=== PATIENT | female | born 1990 | race African-American/Black ===

== ENCOUNTER 2018-08-16 07:34 | Outpatient (CLI) | payer OTHER ==
--- NOTE | 2018-08-16 09:38 | MRI Report ---
Reason: PAIN IN RIGHT KNEE Procedure Date: 08/16/2018 Accession Number: [id number] / [id number] Procedure: MRI - Knee RT W/O CPT Code: FULL RESULT: EXAM: RIGHT KNEE MRI WITHOUT CONTRAST EXAM DATE: 08/16/2018 08:01 AM. CLINICAL HISTORY: PAIN IN RIGHT KNEE. "Recurring locking sensation" COMPARISON: None. TECHNIQUE: Multiplanar, multisequence T1-weighted and fluid-sensitive sequences of the knee without contrast. Other: None. FINDINGS: Bones: No fractures or subluxations. No marrow edema. No bone lesions. Articular Cartilage: Mild chondromalacia lateral patellar facet. Medial Meniscus: The medial meniscus is intact. Lateral Meniscus: The lateral meniscus is intact. Cruciate Ligaments: The anterior and posterior cruciate ligaments are intact. Collateral Ligaments: The medial collateral and lateral collateral ligamentous structures are intact. Tendons: The quadriceps, patellar, semimembranosus, and popliteus tendons are unremarkable. Musculature: No edema or fatty atrophy. Other: Small quantity of fluid medial and lateral patellar recesses.. No popliteal cyst. No loose bodies. The medial and lateral retinacula are intact. The subcutaneous tissues and fat pads are unremarkable. IMPRESSION: Negative for meniscus tear or internal derangement. RADIA MUSCULOSKELETAL RADIOLOGY SECTION
== END 2018-08-16 07:35 | disposition home or self-care (01) ==
LOC: DI 07:34
PROVIDERS: ATTEND Student in an Organized Health Care Education/Training Program
DX: M25.561 Pain in right knee (principal)

== ENCOUNTER 2019-08-16 16:58 | Emergency (ER) | payer OTHER ==
[2019-08-16 18:32] LABS: BASOPHILS % (AUTO) 0.5 %; EOSINOPHILS # (AUTO) 0.1 10^3/uL (0.0-0.7); EOSINOPHILS % (AUTO) 1.7 %; LYMPHOCYTES # (AUTO) 1.5 10^3/uL (1.5-3.5); LYMPHOCYTES % (AUTO) 18.9 %; MEAN CORPUSCULAR HEMOGLOBIN 23.1 pg (27.0-31.0); MEAN CORPUSCULAR HGB CONC 31.2 g/dL (32.0-36.0); MEAN CORPUSCULAR VOLUME 74.3 fL (81.0-99.0); MEAN PLATELET VOLUME 10.4 fL (7.9-10.8); MONOCYTES # (AUTO) 0.7 10^3/uL (0.0-1.0); MONOCYTES % (AUTO) 8.5 %; NEUTROPHILS # (AUTO) 5.4 10^3/uL (1.5-6.6); PLT - PLATELET COUNT 298 10^3/uL (130-450); RED BLOOD COUNT 4.32 10^6/uL (4.20-5.40); RED CELL DISTRIBUTION WIDTH 15.5 % (12.0-15.0); WHITE BLOOD COUNT 7.7 x10^3/uL (4.8-10.8)
[2019-08-16 18:33] VITALS: BP 114/76
--- NOTE | 2019-08-16 18:41 | ED Physician Documentation ---
PD HPI CHEST PAIN - Stated complaint Stated Complaint: RAPID HR/DIFFICULTY BREATHING - Chief complaint Chief Complaint: Cardiac - History obtained from History obtained from: Patient - History of Present Illness Timing - onset: Today (This is a G3, P1 at 22 weeks gestation who since 2:00 has had intermittent episodes of feeling like her heart is racing and shortness of breath when she lays flat. There is no associated chest pain, pedal edema or calf pain. With it. No recent travel.) Review of Systems Constitutional: denies: Fever, Chills, Fatigue Cardiac: denies: Chest pain / pressure, Pedal edema, Calf pain Respiratory: denies: Cough, Hemoptysis, Wheezing PD PAST MEDICAL HISTORY - Present Medications Home Medications: Ambulatory Orders Medication Instructions Recorded Confirmed Metoclopramide [Reglan] 10 mg PO Q6H 08/16/19 08/16/19 Pnv No.95/Ferrous Fum/Folic AC 1 each PO 08/16/19 08/16/19 [ Caplet] Propranolol [Inderal] 10 mg PO 08/16/19 Somatropin [Humatrope] 12 mg IJ 08/16/19 - Allergies Allergies/Adverse Reactions: Allergies Allergy/AdvReac Type Severity Reaction Status Date / Time lidocaine Allergy Edema Verified 08/16/19 17:05 - Social History Does the pt smoke?: No Smoking Status: Never smoker PD ED PE NORMAL - Vitals Vital signs reviewed: Yes - General General: Alert and oriented X 3, No acute distress - Cardiac Cardiac: RRR, No murmur - Respiratory Respiratory: No respiratory distress, Clear bilaterally - Abdomen Abdomen: Non tender, Other (Bedside ultrasound shows single live intrauterine with a heart rate of 130) - Extremities Extremities: No edema, No calf tenderness / cord - Neuro Neuro: Alert and oriented X 3, Normal speech Results - Vitals Vitals: Vital Signs - 24 hr 08/16/19 08/16/19 17:02 18:32 Temperature 37 C Heart Rate 102 H 86 Respiratory 22 25 H Rate Blood Pressure 128/70 114/76 O2 Saturation 99 98 Oxygen O2 Source Room air - EKG (time done) 1713 Rate: Rate (enter#) (102) Rhythm: Sinus tachycardia Rindge: Normal Intervals: Normal HI QRS: Normal Ischemia: Normal ST segments Computer interpretation: Agree with computer - Labs Labs: Laboratory Tests 08/16/19 08/16/19 08/16/19 18:14 18:14 18:14 WBC 7.7 RBC 4.32 Hgb 10.0 L Hct 32.1 L MCV 74.3 L MCH 23.1 L MCHC 31.2 L RDW 15.5 H Plt Count 298 MPV 10.4 Neut # (Auto) 5.4 Lymph # (Auto) 1.5 Kern # (Auto) 0.7 Eos # (Auto) 0.1 Baso # (Auto) 0.0 Absolute Nucleated RBC 0.00 Nucleated RBC % 0.0 Sodium 140 Potassium 3.8 Chloride 107 Carbon Dioxide 23 Anion Gap 10.0 BUN 11 Creatinine 0.8 Estimated GFR (MDRD) 103 Glucose 120 H Calcium 9.1 Total Bilirubin 0.4 AST 15 ALT 10 Alkaline Phosphatase 41 L Troponin I High Sens < 2.3 L Total Protein 7.5 Albumin 3.4 Globulin 4.1 Albumin/Globulin Ratio 0.8 L Lipase 42 PD MEDICAL DECISION MAKING - ED course ED course: 28-year-old woman, G3, P1 at 22 weeks gestation with some feeling of rapid heart rate and shortness of breath today. No clinical evidence of DVT/PE. Modestly anemic. Departure - Departure Disposition: Home, Self Care Clinical Impression: Palpitations Condition: Good Record reviewed to determine appropriate education?: Yes Instructions: ED Palpitations Comments: You are mildly anemic which is kind of normal in . Return for new or worsening symptoms. Follow-up with your OB in 2 to 3 days for recheck.
[2019-08-16 18:48] LABS: ALBUMIN 3.4 g/dL (3.2-5.5); ALBUMIN/GLOBULIN RATIO 0.8 (1.0-2.2); BILIRUBIN,TOTAL 0.4 mg/dL (0.2-1.0); CALCIUM 9.1 mg/dL (8.5-10.3); CREATININE 0.8 mg/dL (0.4-1.0); TOTAL PROTEIN 7.5 g/dL (6.7-8.2)
== END 2019-08-16 19:07 | disposition home or self-care (01) ==
LOC: ED 16:58
DX: O99.412 Diseases of the circulatory system complicating pregnancy, second trimester (principal); R00.0 Tachycardia, unspecified; O99.012 Anemia complicating pregnancy, second trimester; Z3A.22 22 weeks gestation of pregnancy
CPT/HCPCS: 36415; 80053; 83690; 84484; 85025; 93005; 99283

== ENCOUNTER 2020-07-27 08:04 | Outpatient (CLI) | payer OTHER ==
--- NOTE | 2020-07-27 09:26 | MRI Report ---
PROCEDURE: Lumbar Spine W/O INDICATIONS: RT HIP DROP TECHNIQUE: Noncontrast sagittal T1 spin echo and T2 fast echo, sagittal STIR, axial T1 and T2 fast spin echo thr ough the lumbar spine. In cases with scoliosis, additional coronal T2 fast spin echo may be performe d. COMPARISON: None. FINDINGS: Image quality: Excellent. Alignment and Curvature: There is normal bony alignment. Bone Marrow: Marrow is of normal overall signal. No acute vertebral body compression fractures. Spinal Cord: Normal position and appearance of the conus. Regional Soft Tissues: Prevertebral and paraspinous soft tissues are within normal limits T12-L1: Normal in appearance. L1-L2: Normal in appearance. L2-L3: Normal in appearance. L3-L4: Normal in appearance. L4-L5: Normal in appearance. L5-S1: Normal in appearance. IMPRESSION: Normal MRI of the lumbar spine with no findings of focal nerve root impingement or signi ficant degenerative change. Reviewed by: Florin Marin MD on 07/27/2020 9:25 AM PDT Approved by: Florin Marin MD on 07/27/2020 9:25 AM PDT Station ID: [id number]
== END 2020-07-27 08:05 | disposition home or self-care (01) ==
LOC: DI 08:04
DX: M25.351 Other instability, right hip (principal); M25.551 Pain in right hip
CPT/HCPCS: 72148

== ENCOUNTER 2022-03-25 17:01 | Emergency (ER) | payer OTHER ==
[2022-03-25 17:22] VITALS: BP 120/65
--- NOTE | 2022-03-25 18:06 | ED Physician Documentation ---
PD HPI LOWER EXT INJURY - Stated complaint Stated Complaint: RIGHT FOOT INJURY - Chief complaint Chief Complaint: Trauma Ext - History obtained from History obtained from: Patient (She slipped getting out of her truck 2 days ago and has pain at the lateral part of the left foot from an injury. No other injuries. Pain is moderate but controlled by ibuprofen.) Review of Systems Constitutional: reports: Reviewed and negative Eyes: reports: Reviewed and negative Ears: reports: Reviewed and negative Cardiac: reports: Reviewed and negative PD PAST MEDICAL HISTORY - Present Medications Home Medications: Ambulatory Orders Medication Instructions Recorded Confirmed Metoclopramide [Reglan] 10 mg PO Q6H 08/16/19 08/16/19 Pnv No.95/Ferrous Fum/Folic AC 1 each PO 08/16/19 08/16/19 [ Caplet] Propranolol [Inderal] 10 mg PO 08/16/19 Somatropin [Humatrope] 12 mg IJ 08/16/19 - Allergies Allergies/Adverse Reactions: Allergies Allergy/AdvReac Type Severity Reaction Status Date / Time lidocaine Allergy Edema Verified 03/25/22 17:22 - Social History Does the pt smoke?: No Smoking Status: Never smoker PD ED PE NORMAL - Vitals Vital signs reviewed: Yes - General General: Alert and oriented X 3, No acute distress - Extremities Extremities: Other (Tender over the fifth metatarsal diffusely. No obvious bruising or swelling.) - Neuro Neuro: Alert and oriented X 3, No motor deficit, No sensory deficit, Normal speech Results - Vitals Vitals: Vital Signs - 24 hr 03/25/22 17:18 Temperature 36.5 C Heart Rate 85 Respiratory 12 Rate Blood Pressure 120/65 O2 Saturation 99 Oxygen O2 Source Room air - Rads (name of study) Three-view x-ray of the left foot is unremarkable without evidence of fracture. Radiology: EMP read contemporaneously PD MEDICAL DECISION MAKING - ED course ED course: She is placed in a walking boot and up on crutches for comfort. Declined prescription pain medication. Departure - Departure Disposition: 01 Home, Self Care Clinical Impression: Sprain of left foot Qualifiers: Encounter type: initial encounter Qualified Code(s): S93.602A - Unspecified sprain of left foot, initial encounter Condition: Good Record reviewed to determine appropriate education?: Yes Instructions: ED Sprain Foot Comments: You may walk and bear weight as tolerated. Tylenol and/or ibuprofen as needed for pain. Return for new or worsening symptoms. Keep it elevated and ice it. If not improved in a week, follow-up with your doctor for recheck. Forms: Activity restrictions
--- NOTE | 2022-03-25 18:18 | XRAY Report ---
PROCEDURE: Foot 3 View RT INDICATIONS: Right foot injury TECHNIQUE: 4 views of the foot were acquired. COMPARISON: None FINDINGS: Bones: No fractures or dislocations. No suspicious bony lesions. Soft tissues: No tibiotalar joint effusion. Achilles tendon appears normal. IMPRESSION: No evidence acute bony abnormality of the left foot. If clinical suspicion and/or symptoms persist, further assessment with repeat plain films or advanced imaging (e.g., CT, MRI, or bone scan) may be helpful for further assessment. Reviewed by: Jeffy Bland MD on 03/25/2022 6:17 PM PDT Approved by: Jeffy Bland MD on 03/25/2022 6:17 PM PDT Station ID: [id number]
== END 2022-03-25 18:38 | disposition home or self-care (01) ==
LOC: ED 17:01
DX: S93.602A Unspecified sprain of left foot, initial encounter (principal); W17.89XA Other fall from one level to another, initial encounter
CPT/HCPCS: 99282; 99283

== ENCOUNTER 2023-05-15 07:22 | Outpatient (CLI) | payer OTHER ==
--- NOTE | 2023-05-15 09:53 | MRI Report ---
PROCEDURE: WRIST WO - LT INDICATIONS: LEFT WRIST PAIN TECHNIQUE: Noncontrast coronal proton density fast spin echo and T2 fast spin echo with fat saturation; coronal 3-D gradient echo, axial T1 spin echo and T2 fast spin echo with fat saturation, sagittal T1 spin ech o through the wrist. COMPARISON: 06/10/2022. FINDINGS: Image quality: Excellent. Bones and cartilage: The carpal bones are normally aligned. No bone marrow contusions or fractures. No evidence for avascular necrosis. Overlying cartilage surfaces appear normal. Carpal ligaments: The scapholunate ligament is mildly thickened with subtle intrasubstance T2 hyperi ntense signal. The and lunotriquetral ligament is intact. In the absence of intra-articular contrast, the extrinsic carpal ligaments are not well identified. On sagittal images, the pisohamate ligament appears intact. Triangular fibrocartilage complex: Signal abnormality involving regular fibrocartilage near its ulnar insertion is again noted. The adjacent meniscal homolog appears normal in the absence of intra-artic ular contrast. The extensor carpi ulnaris tendon is mildly thickened at the level of ulnar styloid w ith subtle intrasubstance T2 hyperintense signal. Tendons and soft tissues: The carpal tunnel structures appear normal, including the median nerve. T he ulnar nerve appears normal within Guyon's canal. All six extensor tendon compartments demonstrate normal morphology, without pathologic tendon sheath fluid. No soft tissue ganglion cysts. IMPRESSION: 1. Suggestion of low-grade sprain/intrasubstance partial thickness tear involving scapholunate ligame nt. No full-thickness ligament rupture. The lunotriquetral ligament is intact. 2. Subtle TFCC tear near its ulnar insertion is again seen unchanged from prior study. 3. Tendinosis and very low-grade intrasubstance partial thickness tear involving extensor carpi ulnar is tendon at the level of ulnar styloid. Rest of the tendons and ligaments are intact. 4. No marrow edema. No fracture or dislocation. No evidence of avascular necrosis. Reviewed by: Héctor Spencer MD on 05/15/2023 9:52 AM PDT Approved by: Héctor Spencer MD on 05/15/2023 9:52 AM PDT Station ID: [id number]
== END 2023-05-15 07:23 | disposition home or self-care (01) ==
LOC: DI 07:22
PROVIDERS: ATTEND General Practice
DX: S63.502A Unspecified sprain of left wrist, initial encounter (principal); S66.812A Strain of other specified muscles, fascia and tendons at wrist and hand level, left hand, initial encounter

== ENCOUNTER 2023-09-22 14:25 | Outpatient (CLI) | payer OTHER ==
--- NOTE | 2023-09-22 15:33 | Sleep Patient Instructions ---
Sleep Center Visit Summary - Patient Visit Information Reason for Visit: Initial consultation - Patient Instructions Additional Instructions: You will continue with CPAP therapy with pressure changed to 6-10 cmH2O. We encourage you to continue to try to lose weight. Please follow up with the sleep care office in 1-2 months. - Clinic Information Contact: [facility] [address] [place] [id number] [email or web address] T: [phone]
--- NOTE | 2023-09-22 15:38 | SLEEP CARE CONSULTATION ---
Information from patient questionnaire entered by Vick Noble. I have reviewed and concur with the information entered by Vick Noble. This document represents the service I personally performed and the decisions made by me, Maxine Diaz ARNP. History of Present Illness Service Date and Time: 09/22/2023 1425 Reason for Visit: New patient, sleep apnea on CPAP therapy Accompanied by: son, 2 yr Chief Complaint: reports: Fatigue, Frequent awakenings at night Date of Onset: 4+YRS Usual bedtime: 2200 Time it takes to fall asleep: 3-4HRS Snores at night: Yes Observed to quit breathing while asleep: Yes Sleeps alone due to snoring: No Number of times waking at night: 4-5 Reasons for waking at night: reports: Choking, Gasping for air Toss, Turn, or Twitch while sleeping: Yes Recalls having dreams: Yes Usually gets out of bed at: 0600 Feels refreshed in the morning: No Morning headache: No Sleepy or fatigued during the day: Yes Ever fallen asleep while driving: No Takes day naps: Yes (1 time every 2-3 weeks) Dreams during day naps: Yes Prior sleep studies: Yes Additional HPI information: JANNETH BARAJAS was previously diagnosed to have mild, AHI 7.4 with RDI 15.7, obstructive sleep apnea-hypopnea syndrome as seen in sleep study dated 03/28/2021 at [facility] and comes in today to establish care for CPAP therapy. - Parasomnia Symptoms Ever been unable to move upon waking from sleep: No Walks in sleep: No Talks in sleep: No Ever acted out dreams in sleep: Yes Ever felt weak in the knees when startled or emotional: No Bothered by creepy, crawly, restless sensations in legs: Yes Problems with memory or concentration: No CPAP Compliance Data - Data Reviewed with Patient Average duration of nightly device use: 3 hours 5 minutes Compliance rate %: 0 (1-90 days used) Current pressure setting (cmH2O): 6-14 (avg 10.0, max 10.6) Average residual AHI: 0 Compliance data discussion: She has a ResMed Airsense 10. She is using a nasal pillows mask, Dreamwear. She is getting her supplies from [facility]. 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 denies: aerophagia, mask leak noise, condensation in mask/hose, nasal congestion, dry mouth, nose, throat, epistaxis Observed to snore while using device: No Current pressure setting perceived as: too high On therapy, patient: reports: sleeping better, more rested overall. denies: drowsiness while driving Initial [place] Sleepiness Scale score: 10 (09/22/23) Past Medical History Past Medical History: reports: Insulin resistance (PCOS), Anxiety, GERD, Other (ANEMIA; migraines; breast reduction) Social History The patient's occupation is a AM. Patient is and lives in [place]. Have you smoked in the past 12 months: No Alcohol use: No Caffeine use: Yes Family History Family history of sleep disordered breathing: No Allergies and Home Medications Known drug allergies: Yes ( LISTED) Drug allergies reviewed: Yes Home medication list reviewed: Yes Allergy and home medication list: Allergies lidocaine Allergy (Verified 09/22/23 13:14) Edema Home Medications Medication Instructions Recorded Confirmed Last Taken Type Escitalopram [Lexapro] See Rx Instructions .ROUTE .COMPLEX 09/22/23 09/22/23 Unknown History Metformin HCl See Rx Instructions .ROUTE .COMPLEX 09/22/23 09/22/23 Unknown History Topiramate See Rx Instructions .ROUTE .COMPLEX 09/22/23 09/22/23 Unknown History Review of Systems Weight gain over past 5 years: 250 Weight loss over past 5 years: 100 - is down Cardiovascular: denies: high blood pressure Neurological: reports: headaches Psychiatric: reports: anxiety, depression Ear/Nose/Throat: denies: tonsillectomy Musculoskeletal: reports: neck pain Physical Exam Vital signs obtained and entered by: VICK Flanagan MA Blood Pressure: 126/74 (LEFT ARM) Cuff size: regular Heart Rate: 89 O2 Saturation: 98 Height: 5 ft 6 in Weight: 209 lb 6.4 oz Body Mass Index: 33.7 BMI Classification: Obese Neck circumference: 14.5 Mouth and throat: narrow oropharynx Soft palate: long Hard palate: normal Uvula: normal Uvula visualization: 25% Mallampati Class III Tongue: enlarged in size with teeth hoyt on lateral edges Tonsils: small Neck: normal w/o lymphadenopathy or thyromegaly Heart: regular rate and rhythm Lungs: clear bilaterally Impression and Plan 1. Obstructive Sleep Apnea-Hypopnea Syndrome, mild, with poor treatment compliance and good apnea control. On CPAP therapy, the patient has better sleep quality and is more rested overall. She comes back to to get thing restarted. She has sporadically tried to use her CPAP but felt that recently the pressure was too high and could not tolerate wearing the mask. The patients pressure will be changed to autoCPAP 6-9 cmH20. Patient advised to contact me if pressure change is uncomfortable so that it can be adjusted. Goals for apnea control discussed. I will have her followup in 1-2 months to see how she is doing. Patient's apnea severity and rationale for treatment to reduce apnea, improve sleep quality and reduce cardiovascular and cerebrovascular events was reviewed. I also reviewed the benefit of consistent device use of CPAP for insulin resistance, gastric reflux, anxiety and migraines. 2. Obesity, unspecified. Currently patients BMI is 33.7. Obesity increases the risk of apnea, CPAP pressure requirements and overall health risks especially cardiovascular and diabetes. Thus patient is advised to lose weight. * Change auto CPAP pressure to 6-9 cmH2O * Notify me if snoring with mask or feeling that the pressure is too much or too little * Attempt to lose weight * Call this office if any problems using CPAP * Return for follow up in 1-2 months, or sooner if concerns arise Counseling Topics: Weight loss health impact Follow up with Sleep Care in: 1-2 months Visit Type: In Office Time Spent with Patient (minutes): 30 Provider Statement: I spent 100% of the Face to Face Visit with the patient with greater than 50% spent counseling the patient and coordination of care.
[2023-09-22 15:39] VITALS: BP 126/74; O2SAT 98
== END 2023-09-22 14:26 | disposition home or self-care (01) ==
LOC: SC 14:25
PROVIDERS: ATTEND Nurse Practitioner Family
DX: G47.33 Obstructive sleep apnea (adult) (pediatric) (principal); E66.9 Obesity, unspecified; Z68.33 Body mass index [BMI] 33.0-33.9, adult
CPT/HCPCS: 99203; 99212

== ENCOUNTER 2023-11-03 09:51 | Outpatient (CLI) | payer OTHER ==
--- NOTE | 2023-11-03 10:17 | Sleep Patient Instructions ---
Sleep Center Visit Summary - Patient Visit Information Reason for Visit: Two month followup after pressure change - Patient Instructions Additional Instructions: You were here for follow up of CPAP therapy. You will be continued on CPAP therapy with pressure at 6-9 cmH2O. I have ordered a mask refitting, [facility] should reach out to you by phone. If not, you may call them to set up for the mask refitting. You should follow up with sleep care in 1-2 months. You may contact us sooner for any questions or concerns. - Clinic Information Contact: [facility] [address] [place] [address] [email or web address] T: [phone]
--- NOTE | 2023-11-03 10:25 | SLEEP CARE CONSULTATION ---
Information from patient questionnaire entered by Vick oNble. I have reviewed and concur with the information entered by Vick Noble. This document represents the service I personally performed and the decisions made by me, Maxine Diaz ARNP. History of Present Illness Service Date and Time: 11/03/2023 09 Previous diagnosis: Mild, Obstructive Sleep Apnea-Hypopnea Syndrome AHI: 7.4 (with RDI 15.7 in 03/2021) Reason for follow up: other (2 MONTH F/U) Equipment type: CPAP (ResMed Airsense 10, s/u 06/2021) Equipment obtained from: Other ([facility]; getting supplies) Mask style: Nasal pillows Backup mask available: Yes Last cushion change: 2 weeks ago Prior sleep studies: Yes HPI additional information: JANNETH BARAJAS was diagnosed to have mild, AHI 7.4 with RDI 15.7, obstructive sleep apnea-hypopnea syndrome and returned today for CPAP therapy two month with pressure change follow-up. Sleep Study - Results Prior sleep studies: Yes CPAP Compliance Data - Data Reviewed with Patient Average duration of nightly device use: 3 HRS 27 MIN Compliance rate %: 13 (08/31/23-10/29/23; 18/60 days used) Current pressure setting (cmH2O): 6-9 Average residual AHI: 2.2 Average large leak: 1.7 L/min Subjective Missed days of use due to: reports: mask issues (taking mask off without knowing), travel (had to leave last minute and forgot it), other (not putting mask on after using bathroom) Patient concerns: reports: mask discomfort, air blowing in eyes, mask leak noise, nasal congestion (just in past month). denies: aerophagia, condensation in mask/hose, dry mouth, nose, throat, epistaxis Observed to snore while using device: No Current pressure setting perceived as: comfortable On therapy, patient: reports: sleeping better, awakening more refreshed, being more awake and alert during the day, more rested overall. denies: drowsiness while driving Initial [place] Sleepiness Scale score: 10 (09/22/23) Current [place] Sleepiness Scale score: 10 (11/03/23) Allergies and Home Medications Known drug allergies: Yes (as listed) Drug allergies reviewed: Yes Home medication list reviewed: Yes (no changes) Allergy and home medication list: Allergies lidocaine Allergy (Verified 10/30/23 08:51) Edema Review of Systems Review of systems same as previous: Yes (NO CHANGE) Physical Exam Vital signs obtained and entered by: VICK Flanagan MA Blood Pressure: 112/9 (RIGHT ARM) Cuff size: regular Heart Rate: 71 O2 Saturation: 98 Height: 5 ft 6 in Weight: 219 lb 12.8 oz (FULLY DRESSED GEAR) Body Mass Index: 35.4 BMI Classification: Obese Impression and Plan 1. Obstructive Sleep Apnea-Hypopnea Syndrome, mild, with poor treatment compliance and good apnea control. On CPAP therapy, the patient has better sleep quality and is more rested overall. She has significant improvement of her sleep apnea and is happy with CPAP therapy. She has been getting some air leaking into her eyes causing dryness in the morning. She says she checks but cannot find where the air is leaking into her eyes. She has had laser PRK treatment for her eyes and has problem with dry eyes. She uses Refresh drops for her eyes to moisten them. I advised trying a gel eye moisturizer and possibly a sleeping mask to protect her eyes. She would like to try a different mask to see it will reduce air leaking into her eyes. I will write for a mask refitting to see if she can find something that will work better. I also encouraged her to try to use her mask for at least 4 hours nightly to increase her compliance. She also forgot it when she had to leave precipitously and this affected her compliance. I will have her come back in 1-2 months to recheck compliance and see if the mask change helped reduce air leaking into her eyes. She voiced understanding and agreement with plan. Patient's apnea severity and rationale for treatment to reduce apnea, improve sleep quality and reduce cardiovascular and cerebrovascular events was reviewed. I also reviewed the benefit of consistent device use of CPAP for insulin resistance (PCOS), gastric reflux, anxiety and migraines. 2. Obesity, unspecified. Currently patients BMI is 35.4. Obesity increases the risk of apnea, CPAP pressure requirements and overall health risks especially cardiovascular and diabetes. Thus patient is advised to lose weight. * Continue auto CPAP pressure at 6-9 cmH2O * Mask refitting * Notify me if snoring with mask or feeling that the pressure is too much or too little * Attempt to lose weight * Call this office if any problems using CPAP * Return for follow up in 1-2 months, or sooner if concerns arise Counseling Topics: Spare mask, Weight loss health impact Prescriptions: Other (mask refitting) Follow up with Sleep Care in: 1-2 months Visit Type: In Office Time Spent with Patient (minutes): 23 Provider Statement: I spent 100% of the Face to Face Visit with the patient with greater than 50% spent counseling the patient and coordination of care.
[2023-11-03 10:29] VITALS: BP 112/9; O2SAT 98
== END 2023-11-03 09:52 | disposition home or self-care (01) ==
LOC: SC 09:51
PROVIDERS: ATTEND Nurse Practitioner Family
DX: G47.33 Obstructive sleep apnea (adult) (pediatric) (principal); E66.9 Obesity, unspecified; Z68.35 Body mass index [BMI] 35.0-35.9, adult
CPT/HCPCS: 99212; 99213